=== PATIENT | male | born 1940 | race Caucasian/White ===

== ENCOUNTER 2016-06-10 09:02 | Emergency (ER) | payer OTHER ==
[2016-06-10 10:16] LABS: % IMMATURE GRANULYOCYTES 0.2 % (0.0-1.1); ABSOLUTE IMMATURE GRANULOCYTES 0.01 10^3/uL (0.00-0.10); ADD DIFF? NO; ADD MORPH? NO; ADD SCAN? NO; ATYPICAL LYMPHOCYTE FLAG 0 (0-99); FRAGMENT RBC FLAG 0 (0-99); HEMATOCRIT 41.7 % (40.0-51.0); HEMOGLOBIN 14.2 g/dL (13.7-17.5); LEFT SHIFT FLG 0 (0-99); LIPEMIA HEMOLYSIS FLAG 90 (0-99); MEAN CELL HEMOGLOBIN 32.9 pg (27.9-34.1); MEAN CELL HEMOGLOBIN CONCENTR. 34.1 g/dL (32.4-36.7); MEAN CELL VOLUME 96.8 fL (81.5-99.8); MEAN PLATELET VOLUME 10.6 fL (8.7-11.7); PLATELET CLUMPS FLAG 0 (0-99); PLATELET COUNT 196 10^3/uL (150-400); RED BLOOD CELL COUNT 4.31 10^6/uL (4.40-6.38); RED CELL DISTRIBUTION WIDTH 12.4 % (11.5-15.2)
[2016-06-10 10:29] LABS: COLOR YELLOW; LEUKOCYTE ESTERASE,URINE NEGATIVE (NEGATIVE); NITRITE,URINE NEGATIVE (NEGATIVE); PH,URINE 5.5 (5.0-7.5)
[2016-06-10 10:40] LABS: MUCUS 1+ /lpf (NONE-1+); WBC,URINE 0-1 /hpf (0-3)
[2016-06-10 10:45] LABS: ALBUMIN 3.8 g/dL (3.5-5.0); BILIRUBIN,TOTAL 0.9 mg/dL (0.1-1.4); BILIRUBIN-CONJUGATED 0.5 mg/dL (0.0-0.5); BILIRUBIN-UNCONJUGATED 0.4 mg/dL (0.0-1.1); CALCIUM 9.3 mg/dL (8.5-10.4); CREATININE 1.6 mg/dL (0.7-1.3); POTASSIUM 4.3 mEq/L (3.5-5.2); TOTAL PROTEIN 7.1 g/dL (6.3-8.2)
--- NOTE | 2016-06-10 11:22 | UCPHY ---
[id number] IT IS AN ALLERGIC REACTION TO BLOOD PRESSURE MEDS, WHICH HE HAS NOT TAKEN SINCE . HPI/ROS: CHIEF COMPLAINT: Itchy skin HISTORY OF PRESENT ILLNESS: This is a 75-year-old male with a history of hypertension that has been difficult to control. Over the past year his primary care physician has tried several antihypertensives (hydrochlorothiazide , lisinopril, Norvasc, and amlodipine) but he has developed side effects and had to discontinue them. Most recently he was taking amlodipine. He took this for a month and then developed itchiness, primarily of his lower extremities. He also noted some swelling of his right ankle. The amlodipine was discontinued and he was given a prescription for clonidine. He has not started this medication and has not taken any antihypertensive medication for the past week. He thinks that the antihypertensives are likely causing him to have right leg swelling and itchiness. His has noticed a rash on both of his lower legs. He is not certain whether the rash was present prior the to the amlodipine. He has been taking Benadryl 25 mg twice daily for the last few days. Last night the itching was so severe that he had to get out of bed and take a hot bath. He denies headache, confusion, difficulty with speech, new numbness, new weakness, chest pain, or shortness of breath. REVIEW OF SYSTEMS: A ten point review of systems was performed and is negative with the exception of the items mentioned in the HPI. Source: Patient, Family Exam Limitations: No limitations - Personal History Current Tetanus/Diphtheria Vaccine: Yes Tetanus Vaccine Date: < 10 YEARS - Medical/Surgical History Hx Asthma: No Hx Chronic Respiratory Disease: No Hx Diabetes: No Hx Cardiac Disease: No Hx Renal Disease: No Hx Cirrhosis: No Hx Alcoholism: No Hx HIV/AIDS: No Hx Splenectomy or Spleen Trauma: No Other PMH: HTN, BACK ISSUES, CHOLECYSTECTOMY, PROSTATE BIOPSY, migraine headaches - Family History Significant Family History: No pertinent family hx - Social History Smoking Status: Never smoked Additional Social History: He lives with his . He is retired mechanical field engineer. - Physical Exam Exam: General Appearance: Alert. Vital signs reviewed. Blood pressure 209/121 at the time of my initial evaluation. Eyes: Pupils equal and round, no conjunctival injection, no discharge. Anicteric. ENT, Mouth: Mucous membranes are moist, no oropharyngeal erythema or edema. Neck: No lymphadenopathy, supple. No jugular venous distention. Respiratory: Lungs are clear to auscultation; no wheezes, rales, or rhonchi. Cardiovascular: Regular rate and rhythm; no murmur, rub, or gallop. Gastrointestinal: Abdomen is soft and nontender, no masses or organomegaly, bowel sounds normal. Skin: Warm and dry, no rashes on exposed skin, normal color. Back: Nontender to palpation over the thoracolumbar spine. No CVAT. Extremities: Right lower extremity with trace edema involving the ankle and foot. Excoriations over both forearms and both lower extremities. There is a patch of dry skin, about the size of a nickel, behind his left medial malleolus. Is a scaly rash over both lower extremities anteriorly, just above the ankles. Neurological: Alert and oriented. Moving all four extremities easily and equally. Cranial nerves II through XII are grossly intact. Facial expression symmetric. EVER. EOMI. Strength is 5 over 5 bilaterally with testing of all major motor groups. Sensation is intact to light touch over all 4 extremities. Psychiatric: Normal affect. Constitutional: Initial Vital Signs Temperature (C) 36.5 C 06/10/16 09:25 Heart Rate 61 06/10/16 09:25 Respiratory Rate 18 06/10/16 09:25 Blood Pressure 207/93 H 06/10/16 09:25 O2 Sat (%) 95 06/10/16 09:25 O2 Delivery Mode Room Air Allergies/Adverse Reactions: amlodipine Allergy (Verified 06/10/16 09:31) [facility] Allergy (Verified 06/10/16 09:31) hydrochlorothiazide Allergy (Verified 06/10/16 09:31) lisinopril Allergy (Verified 06/10/16 09:31) Home Medications: Medication Instructions Recorded Propranolol 06/10/16 Medical Decision Making ED Course/Re-evaluation: 75-year-old male with poorly controlled hypertension who presents with a blood pressure of 209/121. He is currently asymptomatic. He is not taking any antihypertensives. He has been assiduously following his blood pressures at home and brings a note book with his recorded pressures and a graph that he has created. After looking at his records I see that he has had intermittent high blood pressures for quite some time. His main concern today is itchiness. However, I am concerned about his hypertensive urgency. He did agree to let me do some blood work. CBC, chemistries, liver functions and urinalysis were obtained. I reviewed these. His kidney function is slightly worse than it was when it was last measured in 2016. At that time his creatinine was 1.4, it is now 1.6. Otherwise I do not find any evidence of end-organ damage. He is not experiencing chest pain or shortness of breath. He was not interested in of cardiac evaluation and I did not obtain an EKG, nor did I send a troponin level. I do not think that he is experiencing myocardial ischemia at this time. Nor do I think that he is having a stroke. We discussed the serious and life-threatening sequelae of uncontrolled hypertension. I am recommending close follow-up by his primary care physician. He has an appointment at the end of the month but I have encouraged him to contactthem on Sunday, day after tomorrow, and arrange a sooner appointment. I have also encouraged him to begin the clonidine that was prescribed. He has agreed to do so. We reviewed the danger signs that should prompt him to be seen immediately. Blood pressure is 168/83 at the time of my final interview with him. When the nurse checked his blood pressure at discharge his diastolic was again elevated over 100. He is aware of this. He will go home and take the clonidine that he has. We discussed symptomatic treatment of his itchiness. I am recommending continued, but more regular antihistamine dosing. I am recommending a hydrocortisone cream in alteration with Sarna lotion and Aveeno baths. I am not certain what is causing his skin rash/itchiness. I do not have a way to know whether not it is related to medications that he has been taking. There is no airway compromise and I am not concerned about a acute allergic reaction. He does have some lower extremity edema on the right. Per his report this is longstanding. He does not have calf tenderness and has a negative Homans. I do not think that this is DVT. I do not recommend ultrasound at this point. - Data Points Laboratory Results: Laboratory Results 06/10/16 10:06 06/10/16 10:06 06/10/16 06/10/16 10:25 10:06 WBC 5.12 10^3/uL (3.80-9.50) RBC 4.31 L 10^6/uL (4.40-6.38) Hgb 14.2 g/dL (13.7-17.5) Hct 41.7 % (40.0-51.0) MCV 96.8 fL (81.5-99.8) MCH 32.9 pg (27.9-34.1) MCHC 34.1 g/dL (32.4-36.7) RDW 12.4 % (11.5-15.2) Plt Count 196 10^3/uL (150-400) MPV 10.6 fL (8.7-11.7) Neut % (Auto) 43.4 % (39.3-74.2) Lymph % (Auto) 24.4 % (15.0-45.0) [place] % (Auto) 12.3 % (4.5-13.0) Eos % (Auto) 19.1 H % (0.6-7.6) Baso % (Auto) 0.6 % (0.3-1.7) Nucleat RBC Rel Count 0.0 % (0.0-0.2) Absolute Neuts (auto) 2.22 10^3/uL (1.70-6.50) Absolute Lymphs (auto) 1.25 10^3/uL (1.00-3.00) Absolute Monos (auto) 0.63 10^3/uL (0.30-0.80) Absolute Eos (auto) 0.98 H 10^3/uL (0.03-0.40) Absolute Basos (auto) 0.03 10^3/uL (0.02-0.10) Absolute Nucleated RBC 0.00 10^3/uL (0-0.01) Immature Gran % 0.2 % (0.0-1.1) Immature Gran # 0.01 10^3/uL (0.00-0.10) Sodium 142 mEq/L (134-144) Potassium 4.3 mEq/L (3.5-5.2) Chloride 103 mEq/L (97-110) Carbon Dioxide 26 mEq/l (22-31) Anion Gap 13 mEq/L (8-16) BUN 18 mg/dL (7-23) Creatinine 1.6 H mg/dL (0.7-1.3) Estimated GFR 42 Glucose 95 mg/dL (70-100) Calcium 9.3 mg/dL (8.5-10.4) Total Bilirubin 0.9 mg/dL (0.1-1.4) Conjugated Bilirubin 0.5 mg/dL (0.0-0.5) Unconjugated Bilirubin 0.4 mg/dL (0.0-1.1) AST 34 IU/L (17-59) ALT 33 IU/L (21-72) Alkaline Phosphatase 87 IU/L (38-126) Total Protein 7.1 g/dL (6.3-8.2) Albumin 3.8 g/dL (3.5-5.0) Urine Color YELLOW Urine Appearance CLEAR Urine pH 5.5 (5.0-7.5) Ur Specific [place] 1.015 (1.002-1.030) Urine Protein NEGATIVE (NEGATIVE) Urine Ketones NEGATIVE (NEGATIVE) Urine Blood TRACE H (NEGATIVE) Urine Nitrate NEGATIVE (NEGATIVE) Urine Bilirubin NEGATIVE (NEGATIVE) Urine Urobilinogen 0.2 EU (0.2-1.0) Ur Leukocyte Esterase NEGATIVE (NEGATIVE) Urine RBC 1-3 /hpf (0-3) Urine WBC 0-1 /hpf (0-3) Ur Epithelial Cells TRACE /lpf (NONE-1+) Hyaline Casts 1-3 H /lpf (0-1) Urine Mucus 1+ /lpf (NONE-1+) Urine Glucose NEGATIVE (NEGATIVE) Departure - Departure Disposition: Home, Routine, Self-Care Clinical Impression: Itching, Elevated serum creatinine Hypertension Qualifiers: Qualifier Code: (I10) Essential (primary) hypertension Condition: Good Instructions: Itchy Skin (ED), Hypertension (ED) Additional Instructions: Your blood pressure was elevated while you in were in Urgent Care. You had 1 blood pressure reading that was 209/121. Your lowest blood pressure reading was 168/83. I strongly recommend that you begin taking the clonidine that has been prescribed. As we discussed, I do not know what is causing your skin to be so itchy. I am recommending some symptomatic measures that might make you more comfortable. You should continue with an antihistamine such as Benadryl. Benadryl might make you sleepy. If you continue to take Benadryl I recommend that you take 25 mg every 6 hours while awake. If you would like to switch to an antihistamine that is less sedating, you might try Claritin. By an [id number] hydrocortisone cream that you can use on your for arms and your lower legs. Apply this twice daily to the itchy/rash areas. Apply it lightly. I also recommend an [id number] lotion called Sarna. This helps with itching. Buy 1 of the Aveeno bath lotions to use also. I recommend that you see someone in Dr. Rg's office sooner than your appointment at the end of the month. Continue to record her blood pressures, at least twice daily. If you develop headache, confusion, difficulty talking, new numbness, new weakness, chest pain , or shortness of breath you should be re-evaluated immediately. Referrals: Ila Rg MD [Primary Care Provider] - As per Instructions - PQRS PQRS Measurement: 134: Depression screening and followup, PRIME MD-PHQ2 (12 years and older) Over the last 2 weeks, how often have you been bothered by any of the following problems? 1. Feeling down, depressed, or hopeless? 2. Little interest or pleasure in doing things? Patient answered no to both 1 and 2 130: Documentation of medications. Reviewed all patient medications, doses, route and frequency. 226: Do you smoke? No. 47: 65 and older: Advanced care planning. Patient designates surrogate decision maker as spouse . 51: 18 years old and older with diagnosis of COPD, spirometry performance. Patient has no history of COPD 52: 18 years old and older with COPD and symptoms of COPD or FEV1<60% predicted prescribed a B Agonist. Not applicable
[2016-06-10 11:23] VITALS: BP 168/111; PULSE 60; RESP 16; TEMP 98.1; O2SAT 94
== END 2016-06-10 11:31 | disposition home or self-care (01) ==
LOC: CED 09:02
DX: L29.9 Pruritus, unspecified (principal); R60.0 Localized edema; I10 Essential (primary) hypertension
CPT/HCPCS: 80048-PO; 80076-PO; 81003-PO; 81015-PO; 85025-PO; 99214-PO; G0463-PO

== ENCOUNTER → 2016-09-26 | Outpatient (CLI) | payer OTHER | LOC: CIMAGING 16:07 | PROVIDERS: ATTEND Family Medicine | DX: M54.5 Low back pain (principal); S39.92XS Unspecified injury of lower back, sequela | CPT/HCPCS: 72100-PO; 80053-PO; 80061-PO ==